=== PATIENT | female | born 1990 | race African-American/Black ===

== ENCOUNTER 2018-10-16 08:21 | Emergency (ER) | payer SELFPAY ==
[~2018-10-16] VITALS: Ht 170.2 cm; Wt 65.0 kg
[2018-10-16 08:24] VITALS: BP 119/80
== END 2018-10-16 09:54 | disposition left against medical advice (07) ==
LOC: ER 08:21
DX: Z53.21 Procedure and treatment not carried out due to patient leaving prior to being seen by health care provider (principal)